=== PATIENT | male | born 1960 | race Caucasian/White ===

== ENCOUNTER 2016-12-22 23:00 | Observation (INO) | payer BC ==
[~2016-12-22] VITALS: Ht 162.6 cm; Wt 65.8 kg
--- NOTE | ~2016-12-22 | OR ---
Unit #: [id number] #: [id number] Patient: ABA NEWTON [id number] [address] [place], [place] [address] [id number] I MR#: [id number] NAME: ABA NEWTON ROOM: 217 Date of Procedure: 12/23/2016 Admission Date: 12/22/2016 Surgeon: Ashkan Simons M.D. : 1960 Attending Physician: Ashkan Simons M.D. Primary Care Physician: Marco Bonilla M.D. OPERATIVE REPORT PREOPERATIVE DIAGNOSIS Left ureteral stone. POSTOPERATIVE DIAGNOSIS Left ureteral stone. PROCEDURES PERFORMED Cystoscopy, left ureteroscopy, laser lithotripsy, basket extraction, stent placement, no string. ANESTHESIA General. DESCRIPTION OF PROCEDURE After informed consent, he was taken to the operating room, placed under general anesthetic, and positioned in lithotomy. His penis and perineum were prepped and draped in the usual sterile fashion. Cystoscopy was performed revealing no stones, no tumor. The entire bladder was inspected. He had some stone fragments actually in the bladder. They were irrigated out. The stone was visible in the proximal ureter. Under fluoroscopy, ureteral access sheath was placed after the wire was used and I had to use Lubriglide dilating catheters. Next, rigid ureteroscopy was performed and he had some fragments in the distal ureter. These were extracted using a basket. An access sheath was then placed over the wire, and flexible ureteroscopy was performed. The stone that was in the proximal ureter migrated to the kidney. A laser was used and the larger stone was broken up into smaller pieces. A basket was used to extract those fragments. They were sent to the lab for analysis. Repeat ureteroscopy and inspection of the ureter and collecting system showed no other stone fragments. There was some dust that was too small to extract. A 5 x 24 stent was placed with the tether removed. There was a good coil in the bladder and in the collecting system. The patient will be discharged home. He will probably need to have his stent removed after two weeks. He had a significant amount of edema in the ureter, where the stone was located. He also had a few areas of narrowing in the distal ureter. They were not normal in caliber and they suggest possibility of previous ureteral strictures. He will be discharged home with pain medication, antibiotics, and follow up as an outpatient. Dictated by... Unit #: [id number] #: [id number] Patient: ABA NEWTON M.D. TLB/ta TD: 12/24/2016 07:59 JOB #: [id number] OPERATIVE REPORT Page 1 of 1 X Ashkan Simons MD X PROCEDURE OPERATIVE NOTE
--- NOTE | ~2016-12-22 | HP ---
Unit #: [id number] #: [id number] Patient: ABA NEWTON [id number] [address] [address] [id number] I MR#: [id number] NAME: ABA NEWTON ROOM: 217 Age: 56 Sex: M Admission Date: 12/22/2016 : 1960 Attending Physician: Ashkan Simons M.D. Primary Care Physician: Marco Bonilla M.D. HISTORY AND PHYSICAL CHIEF COMPLAINT Left flank pain. HISTORY OF PRESENT ILLNESS 56-year-old man status post left shockwave lithotripsy 2 days ago, had some pain afterwards. CT scan showed 8 mm stone in the left ureter. Patient had pain control issues, he was admitted to the hospital. PAST MEDICAL HISTORY 1. ESWL. 2. Mitral valve prolapse. 3. Hypertension. 4. GERD. 5. Vasectomy. 6. Hernia repair. SOCIAL HISTORY Denies smoking. No drinking. FAMILY HISTORY Negative for urologic issues. ALLERGIES Cipro and Levaquin and IV contrast. MEDICATIONS 1. [place]. 2. Atenolol. 3. Digoxin. 4. Prilosec. REVIEW OF SYSTEMS Left flank pain. PHYSICAL EXAM VITAL SIGNS: Afebrile. Vital signs stable. ABDOMINAL EXAM: Soft. No rebound, no guarding. Mild left tenderness. DIAGNOSTIC STUDIES LABORATORY: Hematocrit 47, white count 15.5, creatinine 1.3. Urinalysis - he has got RBCs. He has no fever, no chills. There is no nitrites. Unit #: [id number] #: [id number] Patient: ABA NEWTON ASSESSMENT Stone in left ureter. Patient and in the room. I explained to them the risks, benefits and alternatives. We discussed observation versus intervention. Patient requests and consents to ureteroscopy, laser lithotripsy, basket extraction and stent placement on the left. We discussed the risk of possible bleeding, infection, sepsis, injury to (1) organs and stent symptoms. Patient requesting, consents to the procedure. Will get him on the schedule later this afternoon. I explained to the patient and his if he were to spike a fever or show signs of tachycardia or hypertension, we would likely just place a stent and not perform ureteroscopy or lithotripsy. Dictated by Fidel Marrero/ynes TD: 12/23/2016 09:03 JOB #: [id number] HISTORY AND PHYSICAL Page 1 of 1 X Ashkan Simons MD X HISTORY AND PHYSICAL
--- NOTE | ~2016-12-22 | EKG ---
PATIENT: ABA NEWTON UNIT #: [id number] Ventricular Rate: 61 BPM Atrial Rate: 61 BPM P-R Interval: 196 ms QRS Duration: 88 ms Q-T Interval: 382 ms QTC Calculation(Bezet): 384 ms P [place]: 34 degrees Calculated R [place]: -51 degrees Calculated T [place]: 32 degrees Diagnosis Line: Normal sinus rhythm Diagnosis Line: Left axis deviation Diagnosis Line: Minimal voltage criteria for LVH, may be normal Diagnosis Line: variant Diagnosis Line: Abnormal ECG Diagnosis Line: No previous ECGs available Diagnosis Line: Confirmed by RAMY GALLEGOS MD ([id number]) on Diagnosis Line: 12/23/2016 10:54:31 AM INTERPRETING MD: EL JETER
--- NOTE | ~2016-12-22 | CO ---
Unit #: [id number] #: [id number] Patient: ABA NEWTON [id number] [address] [address] [id number] I MR#: [id number] NAME: ABA NEWTON ROOM: 217 Age: 56 Sex: M Admission Date: 12/22/2016 : 1960 Attending Physician: Ashkan Simons M.D. Primary Care Physician: Marco Bonilla M.D. Requesting Physician: Ashkan Simons M.D. Consultation Date: 12/23/2016 CONSULTATION REPORT REASON FOR CONSULT Management of Digoxin. HISTORY OF PRESENT ILLNESS This pleasant 56-year-old male with mitral valve prolapse and associated arrhythmia, kidney stones was transferred from [facility] emergency department to this facility and admitted by the Urology Service for renal colic. The patient has a history of kidney stones and underwent ESWL yesterday, developed increasing pain in the left lower flank. He was told to go to emergency department when he did. A CT scan was performed showing an obstructing 8 mm calculus left mid ureter with significant hydronephrosis. He was treated with Rocephin, IV fluids, Dilaudid and Phenergan and sent to this facility. Currently, he is comfortable. The patient states he has a history of mitral valve prolapse and does have some sort of tachy and perhaps some bradyarrythmias. His symptoms are well controlled with atenolol and Digoxin. Current Digoxin level is not toxic, in fact, is 0.4. PAST MEDICAL HISTORY 1. Mitral valve prolapse. 2. Essential hypertension. 3. GERD. 4. Kidney stones status post ESWL x2. 5. Vasectomy. 6. Hernia repair. SOCIAL HISTORY The patient lives with his . He is a lifelong nonsmoker, does not drink alcohol. FAMILY HISTORY Negative for kidney stones. ALLERGIES Cipro and Levaquin causing itching and IV dye causing convulsions. HOME MEDICATIONS 1. Lillian 7.5 mg. 2. Atenolol 50 mg daily. 3. Digoxin 0.25 mg daily. 4. Prilosec 40 mg daily. Unit #: [id number] #: [id number] Patient: ABA NEWTON REVIEW OF SYSTEMS Notable for left renal colic, hypertension, mitral valve prolapse, GERD, kidney stones, above-mentioned surgeries, arrhythmia. All other systems were reviewed and otherwise negative. PHYSICAL EXAMINATION GENERAL APPEARANCE: Pleasant, thin, 56-year-old male who currently is in no acute distress. VITAL SIGNS: Temperature 98.3. Pulse 64. Respirations 16. O2 saturation is 95%. Blood pressure 123/66. HEENT EXAMINATION: Eyes: PERRLA. Extraocular muscles are intact. Pharynx is benign. NECK: Supple without adenopathy or thyromegaly. CHEST: Clear. BACK: Really without CVA tenderness at present. CARDIAC: Normal S1, S2 with a gallop and soft systolic murmur best heard along the left sternal border. ABDOMEN: Bowel sounds are present. No hepatosplenomegaly, tenderness or masses. EXTREMITIES: Without edema. Pedal pulses are present. DIAGNOSTIC STUDIES LABORATORY: Prior to transfer, hematocrit 47.1. WBC count is 15.5, normal MCV and platelet count. SMA-7: Creatinine is 1.3. The rest of the patient's chemistries are normal. I asked for a Digoxin level this morning and it is 0.4. Urinalysis: Positive RBC, 5 to 10 white cells, 3+ bacteria. IMAGING: CT scan: 8 mm obstructing calculus left mid ureter with fairly severe left-sided hydronephrosis. Two small calculi are likely present just proximal to it. Tiny nonobstructing calculi dependently in the left kidney and, in the bladder, to the right side, nonobstructing right renal calculi. Small amount of perinephric stranding on the left. ASSESSMENT 1. Mitral valve prolapse with history of arrhythmia, well controlled per patient's report on atenolol and Digoxin. Digoxin level was obtained this morning. The patient is not toxic. 2. Essential hypertension. 3. Gastroesophageal reflux disease. 4. Admission to Urology for obstructing left renal stone with colic and hydronephrosis. PLAN 1. Continue usual atenolol and Digoxin. 2. Baseline EKG this morning. Thank you very much for this consult. We will follow with you for any medical problems. Dictated by... Jewell Meadows M.D. AML/bd TD: 12/23/2016 06:07 Unit #: [id number] #: [id number] Patient: ABA NEWTON JOB #: [id number] CONSULTATION REPORT Page 1 of 1 X Jewell Meadows MD CONSULTATION REPORT
[2016-12-23] MEDS ORDERED: DIGOX0.25 MG PO (04:14)
[2016-12-23] MEDS ORDERED: VICODIN (04:15)
[2016-12-23] MEDS ORDERED: TENORMIN50 MG PO (04:15)
[2016-12-23] MEDS ORDERED: OMEPRAZOLE40 M1 PO (04:15)
[2016-12-23 07:00] LABS: BUN/CREATININE RATIO 14.54; CALCIUM SERUM 8.6 mg/dL (8.4-10.2); CREATININE SERUM 1.1 mg/dL (0.6-1.4); GLOM FILT RATE Estimated 74.7 mL/min (>60); POTASSIUM 4.2 mmol/L (3.5-5.1)
[2016-12-23] MEDS ORDERED: PERCOCET5/325 PO (16:36)
[2016-12-23] MEDS ORDERED: PYRIDIUM PO (16:38)
[2016-12-23] MEDS ORDERED: BACTRIM DS TAB1 EACH PO (16:38)
== END 2016-12-23 18:23 | disposition home or self-care (01) | DRG 694 ==
LOC: C2A 23:00
PROVIDERS: Urology
DX: N20.1 Calculus of ureter (principal); I10 Essential (primary) hypertension; K21.9 Gastro-esophageal reflux disease without esophagitis; M19.90 Unspecified osteoarthritis, unspecified site; Z88.1 Allergy status to other antibiotic agents; Z79.899 Other long term (current) drug therapy; Z91.041 Radiographic dye allergy status; Z87.442 Personal history of urinary calculi
CPT/HCPCS: 80048; 80162; 82365; 93005; C2617; G0378; J0696; J1170; J1885; J2405; J3010